=== PATIENT | male | born 1975 | race Hispanic/Latino ===

== ENCOUNTER → 2018-04-22 | Day surgery (SDC) | payer MEDICARE ==
[2018-04-15 13:42] LABS: BASOPHILS % 0.6 % (0.0-1.0); EOSINOPHILS # (AUTO) 0.1 (0.0-0.4); EOSINOPHILS % 1.3 % (0.0-6.0); HEMATOCRIT 58.2 % (38.2-49.6); HEMOGLOBIN 18.5 g/dL (14.0-18.0); LYMPHOCYTES # (AUTO) 2.1 (1.0-3.2); MEAN CORPUSCULAR HEMOGLOBIN 26.8 pg (28-32); MEAN CORPUSCULAR HGB CONC 31.8 g/dL (31-35); MEAN CORPUSCULAR VOLUME 84.2 fL (81-99); MONOCYTES # (AUTO) 0.7 (0.2-0.8); MONOCYTES % 10.9 % (4.4-11.3); NEUTROPHILS # (AUTO) 3.5 (2.1-6.9); NEUTROPHILS % 54.9 % (38.7-80.0); PLATELET COUNT 203 x10e3/uL (140-360); RED BLOOD COUNT 6.91 x10e6/uL (4.3-5.7); RED CELL DISTRIBUTION WIDTH 14.7 % (11.7-14.4)
[~2018-04-22] MED LIST: CARTIA XT180 MG PO; CARVEDILOL12.5 MG PO; DIGOXIN125 MCG PO; ELQUIS; ENTRESTO; FENOFIBRATE145 MG PO; FUROSEMIDE40 MG PO; MIDAZOLAM HCL 2 MG/2 ML VIAL ONE; PROPOFOL IV EMULSION 10 MG/ML 20 ML VIAL ONE
[2018-04-22 09:05] VITALS: BP 117/95
--- NOTE | 2018-04-22 16:31 | Operative Report ---
DATE OF PROCEDURE: 04/22/2018 SURGEON: Anselmo Meléndez MD PROCEDURE: Colonoscopy. INDICATION: Screening colonoscopy. DESCRIPTION OF PROCEDURE: After informed and written consent, premedications with monitored anesthesia care, standard video Olympus colonoscope was introduced into the rectum and all the way into the terminal ileum. Terminal ileum, cecum, and ascending, transverse, and descending colon all appeared to be normal. Mild diverticulosis was seen in the sigmoid colon. Retroflexion of the rectum was normal. IMPRESSION: Diverticulosis. Repeat colonoscopy in 10 years. Resume all medications. The patient to follow up with primary care physician, come back and see us as needed. Anselmo Meléndez MD SR/MODL /[id number]
--- OUTSIDE RECORDS SUMMARY | 2018-04-23 10:14 | XMS REPORT | Clinical Summary ---
Author Author [facility] Address Unknown Phone Unavailable Care Team Providers Care Financial Associate Name Role Phone Asked, No Pcp PCP Unavailable Allergies Not on File Medications End Date Status Medication Sig Dispensed Refills Start Date 12/25/2017 Discontinued metoprolol tartrate Take 50 mg by 0 (LOPRESSOR) 50 mg tablet mouth 2 (two) times a day. 12/25/2017 Discontinued lisinopril Take 10 mg by 0 (PRINIVIL,ZESTRIL) 10 mg mouth daily. tablet 01/24/2018 carvedilol (COREG) 6.25 Take 1 tablet 60 tablet 0 MG tablet (6.25 mg 8 total) by mouth 2 (two) times a day for 30 days. 01/24/2018 sacubitril-valsartan Take 1 tablet 60 tablet 0 (ENTRESTO) 49-51 mg by mouth 2 8 tablet per tablet (two) times a day for 30 days. 01/25/2018 apixaban (ELIQUIS) 5 mg Take 1 tablet 60 tablet 0 tablet (5 mg total) 8 by mouth 2 (two) times a day for 30 days. 01/25/2018 furosemide (LASIX) 40 mg Take 1 tablet 30 tablet 0 tablet (40 mg total) 8 by mouth daily for 30 days. 01/25/2018 aspirin (ECOTRIN) 81 MG Take 1 tablet 30 tablet 0 enteric coated tablet (81 mg total) 8 by mouth daily for 30 days. 03/06/2018 Discontinued apixaban (ELIQUIS) 5 mg Take 5 mg by 0 tablet mouth 2 (two) times a day. 03/06/2018 Discontinued sacubitril-valsartan Take 1 tablet 0 (ENTRESTO) 49-51 mg by mouth 2 tablet per tablet (two) times a day. 03/06/2018 Discontinued furosemide (LASIX) 40 mg Take 40 mg by 0 tablet mouth 2 (two) times a day. 03/06/2018 Discontinued carvedilol (COREG) 12.5 Take 12.5 mg 0 MG tablet by mouth 2 (two) times a day with meals. 04/05/2018 carvedilol (COREG) 25 MG Take 1 tablet 60 tablet 0 tablet (25 mg total) 9 by mouth 2 (two) times a day with meals for 30 days. 04/05/2018 sacubitril-valsartan Take 1 tablet 60 tablet 0 (ENTRESTO) 49-51 mg by mouth 2 9 tablet per tablet (two) times a day for 30 days. 04/06/2018 digOXIN (LANOXIN) 125 mcg Take 1 tablet 30 tablet 0 tablet (125 mcg 9 total) by mouth daily for 30 days. 04/05/2018 diltiazem CD (CardIZEM Take 1 30 capsule 0 CD) 360 MG 24 hr capsule capsule (360 9 mg total) by mouth daily for 30 days. 04/05/2018 apixaban (ELIQUIS) 5 mg Take 1 tablet 60 tablet 0 tablet (5 mg total) 9 by mouth 2 (two) times a day for 30 days. 04/05/2018 furosemide (LASIX) 40 mg Take 1 tablet 60 tablet 0 tablet (40 mg total) 9 by mouth 2 (two) times a day for 30 days. Active Problems Problem Noted Date Atrial fibrillation with RVR 03/02/2018 Pneumonia due to infectious organism 12/20/2017 Acute coronary syndrome 12/19/2017 Encounters Care Team Description Date Type Specialty Lisa Loomis MD Raza, Turab, MD Atrial fibrillation with RVR (HCC) (Primary Dx); SOB (shortness of breath) 03/02/2018 Hospital Cardiology - Encounter 03/06/2018 Jasmyn Trivedi, PharmD 12/26/2017 Patient Quality Outreach Zhao Luciano MD Cv right and left heart cath selective angiography lv [[id number] (CPT)] 12/24/2017 Surgery Procedural Cardiology SanchezGilberto DO Cherian, Cecil, MD Acute coronary syndrome (HCC) (Primary Dx); Pleural effusion; Atrial fibrillation, unspecified type (HCC) 12/19/2017 [facility] General Internal Medicine - Encounter 12/25/2017 after 04/22/2017 Social History Date Tobacco Use Types Packs/Day Years Used Never Smoker Smokeless Tobacco: Never Used Alcohol Use Drinks/Week oz/Week Comments Yes Sex Assigned at Date Recorded Not on file Industry Job Start Date Occupation Not on file Not on file Not on file Travel End Travel History Travel Start No recent travel history available. Last Filed Vital Signs Time Taken Vital Sign Reading 03/06/2018 11:51 AM [facility] Blood Pressure 120/69 03/06/2018 11:51 AM [facility] Pulse 56 03/06/2018 11:51 AM [facility] Temperature 36.7 C (98 F) 03/06/2018 11:51 AM [facility] Respiratory Rate 18 03/06/2018 11:51 AM [facility] Oxygen Saturation 95% - Inhaled Oxygen - Concentration 03/06/2018 5:01 AM [facility] Weight 114 kg (251 lb 9.6 oz) 12/19/2017 2:49 PM CDT Height 182.9 cm (6') 03/06/2018 5:01 AM [facility] Body Mass Index 34.12 Plan of Treatment Health Maintenance Due Date Last Done Comments INFLUENZA VACCINE 09/25/2017 Implants Device Identifier Shelf Expiration Date Model / Serial / Lot Implanted Type Area Manufactur er Yury Knee Procedures Comments Procedure Name Priority Date/Time Associated Diagnosis HC COMPLETE BLD COUNT Timed 03/06/2018 W/AUTO DIFF 6:00 AM [facility] TOTAL BILIRUBIN Routine 03/06/2018 4:00 AM [facility] ESTIMATED GFR Timed 03/05/2018 6:00 AM [facility] BASIC METABOLIC PANEL Timed 03/05/2018 6:00 AM [facility] ESTIMATED GFR Routine 03/05/2018 1:45 AM [facility] HC COMPLETE BLD COUNT Routine 03/05/2018 W/AUTO DIFF 1:45 AM [facility] BASIC METABOLIC PANEL Routine 03/05/2018 1:45 AM [facility] PHOSPHORUS LEVEL Routine 03/05/2018 1:45 AM [facility] MAGNESIUM LEVEL Routine 03/05/2018 1:45 AM [facility] HC COMPLETE BLD COUNT Timed 03/04/2018 W/AUTO DIFF 2:34 PM [facility] ESTIMATED GFR Timed 03/04/2018 6:00 AM [facility] BASIC METABOLIC PANEL Timed 03/04/2018 6:00 AM [facility] B NATRIURETIC PEPTIDE Routine 03/04/2018 5:20 AM [facility] PHOSPHORUS LEVEL Routine 03/04/2018 4:00 AM [facility] MAGNESIUM LEVEL Routine 03/04/2018 4:00 AM [facility] PERIPHERAL SMEAR Routine 03/03/2018 3:21 PM [facility] TOTAL BILIRUBIN Routine 03/03/2018 3:21 PM [facility] HAPTOGLOBIN Routine 03/03/2018 3:21 PM [facility] LDH Routine 03/03/2018 3:21 PM [facility] ESTIMATED GFR Routine 03/03/2018 6:30 AM [facility] BASIC METABOLIC PANEL Routine 03/03/2018 6:30 AM [facility] LACTIC ACID LEVEL Routine 03/03/2018 6:30 AM [facility] CBC HEMOGRAM Routine 03/03/2018 6:10 AM [facility] LACTIC ACID LEVEL, SEPSIS Timed 03/03/2018 - NOW AND REPEAT 2X EVERY 1:17 AM [facility] 3 HOURS XR CHEST 1 VW PORTABLE STAT 03/02/2018 7:40 PM [facility] RESPIRATORY PATHOGEN Routine 03/02/2018 PANEL 7:37 PM [facility] VENOUS BLOOD GAS STAT 03/02/2018 7:22 PM [facility] B NATRIURETIC PEPTIDE STAT 03/02/2018 7:22 PM [facility] PARTIAL THROMBOPLASTIN STAT 03/02/2018 TIME (PTT) 7:22 PM [facility] PROTHROMBIN TIME WITH INR STAT 03/02/2018 7:22 PM [facility] HC COMPLETE BLD COUNT STAT 03/02/2018 W/AUTO DIFF 7:22 PM [facility] ESTIMATED GFR STAT 03/02/2018 7:17 PM [facility] TROPONIN STAT 03/02/2018 7:17 PM [facility] LACTIC ACID LEVEL, SEPSIS STAT 03/02/2018 - NOW AND REPEAT 2X EVERY 7:17 PM [facility] 3 HOURS MAGNESIUM LEVEL STAT 03/02/2018 7:17 PM [facility] PHOSPHORUS LEVEL STAT 03/02/2018 7:17 PM [facility] HEPATIC FUNCTION PANEL STAT 03/02/2018 7:17 PM [facility] BASIC METABOLIC PANEL STAT 03/02/2018 7:17 PM [facility] NV CRITICAL CARE, E/M Routine 03/02/2018 30-74 MINUTES 7:01 PM [facility] ECG 12-LEAD STAT 03/02/2018 6:54 PM [facility] ESTIMATED GFR Routine 12/25/2017 4:35 AM CDT COMPREHENSIVE METABOLIC Routine 12/25/2017 PANEL 4:35 AM CDT HC COMPLETE BLD COUNT Routine 12/25/2017 W/AUTO DIFF 4:35 AM CDT CV RIGHT AND LEFT HEART Routine 12/24/2017 CATH SELECTIVE CORONARY 3:28 PM CDT LV URINALYSIS SCREEN AND Routine 12/24/2017 MICROSCOPY, WITH REFLEX 1:03 PM CDT TO CULTURE URINE CULTURE Routine 12/24/2017 1:00 PM CDT BLOOD CULTURE, AEROBIC & Routine 12/24/2017 ANAEROBIC 12:43 PM CDT BLOOD CULTURE, AEROBIC & Routine 12/24/2017 ANAEROBIC 12:36 PM CDT RESPIRATORY PATHOGEN Routine 12/24/2017 PANEL 11:36 AM CDT ESTIMATED GFR Routine 12/24/2017 4:10 AM CDT COMPREHENSIVE METABOLIC Routine 12/24/2017 PANEL 4:10 AM CDT HC COMPLETE BLD COUNT Routine 12/24/2017 W/AUTO DIFF 4:10 AM CDT HC COMPLETE BLD COUNT Routine 12/23/2017 W/AUTO DIFF 5:25 AM CDT ESTIMATED GFR Routine 12/23/2017 4:00 AM CDT COMPREHENSIVE METABOLIC Routine 12/23/2017 PANEL 4:00 AM CDT B NATRIURETIC PEPTIDE Routine 12/22/2017 5:01 AM CDT HC COMPLETE BLD COUNT Routine 12/22/2017 W/AUTO DIFF 5:01 AM CDT ESTIMATED GFR Routine 12/22/2017 4:00 AM CDT COMPREHENSIVE METABOLIC Routine 12/22/2017 PANEL 4:00 AM CDT HC COMPLETE BLD COUNT Routine 12/21/2017 W/AUTO DIFF 5:30 AM CDT ESTIMATED GFR Routine 12/21/2017 4:00 AM CDT COMPREHENSIVE METABOLIC Routine 12/21/2017 PANEL 4:00 AM CDT B NATRIURETIC PEPTIDE Routine 12/20/2017 4:45 AM CDT RESPIRATORY PATHOGEN Routine 12/19/2017 PANEL 11:49 PM CDT INFLUENZA ANTIGEN Routine 12/19/2017 11:49 PM CDT TROPONIN Timed 12/19/2017 10:31 PM CDT BLOOD CULTURE, AEROBIC & Routine 12/19/2017 ANAEROBIC 10:20 PM CDT BLOOD CULTURE, AEROBIC & Routine 12/19/2017 ANAEROBIC 10:20 PM CDT URINALYSIS SCREEN AND Routine 12/19/2017 MICROSCOPY, WITH REFLEX 7:22 PM CDT TO CULTURE URINE CULTURE Routine 12/19/2017 7:22 PM CDT ECHOCARDIOGRAM 2D STAT 12/19/2017 COMPLETE W MMODE SPECTRAL 6:51 PM CDT COLOR DOPPLER ([id number]) CT ANGIOGRAM PE CHEST STAT 12/19/2017 6:[address] HEAD WO CONTRAST STAT 12/19/2017 6:24 PM CDT TROPONIN Timed 12/19/2017 6:00 PM CDT XR CHEST 2 VW STAT 12/19/2017 4:34 PM CDT ESTIMATED GFR STAT 12/19/2017 3:19 PM CDT B NATRIURETIC PEPTIDE STAT 12/19/2017 3:19 PM CDT TROPONIN STAT 12/19/2017 3:19 PM CDT COMPREHENSIVE METABOLIC STAT 12/19/2017 PANEL 3:19 PM CDT HC COMPLETE BLD COUNT STAT 12/19/2017 W/AUTO DIFF 3:19 PM CDT ECG 12-LEAD STAT 12/19/2017 2:56 PM CDT after 04/22/2017 Results * CBC with platelet and differential (03/06/2018 6:00 AM [facility]) Only the most recent of 10 results within the time period is included. WBC 7.15 4.50 - 11.00 k/uL [facility] RBC 7.02 (H) 4.40 - 6.00 m/uL [facility] HGB 19.1 (H) 14.0 - 18.0 g/dL [facility] HCT 58.3 (H) 41.0 - 51.0 % [facility] MCV 83.0 82.0 - 100.0 fL [facility] MCH 27.2 27.0 - 34.0 pg [facility] MCHC 32.8 31.0 - 37.0 g/dL [facility] RDW - SD 43.9 37.0 - 55.0 fL [facility] MPV 9.6 8.8 - 13.2 fL [facility] Platelet count 261 150 - 400 k/uL [facility] Nucleated RBC 0.00 /100 WBC [facility] Neutrophils 52.2 39.0 - 69.0 % [facility] Lymphocytes 35.4 25.0 - 45.0 % [facility] Monocytes 10.1 (H) 0.0 - 10.0 % [facility] Eosinophils 1.4 0.0 - 5.0 % [facility] Basophils 0.6 0.0 - 1.0 % [facility] Immature granulocytes 0.3Comment: "Immature 0.0 - 1.0 % [facility] granulocytes" (promyelocytes, HOSPITAL myelocytes, metamyelocytes) Specimen Blood Performing Organization Address City/[facility] Phone Number [facility] DEPARTMENT OF [address] [place] [address] PATHOLOGY AND GENOMIC MEDICINE [address] * Total bilirubin (03/06/2018 4:00 AM [facility]) Only the most recent of 2 results within the time period is included. Total bilirubin 1.2 0.0 - 1.2 mg/dL [facility] Specimen Plasma specimen Performing Organization Address City/[facility] Phone Number [facility] DEPARTMENT OF [address] [place] [address] PATHOLOGY AND GENOMIC MEDICINE [address] * Estimated GFR (03/05/2018 6:00 AM [facility]) Only the most recent of 11 results within the time period is included. Estimated GFR >=90 mL/min/1.73 m2 [facility] Comment: HOSPITAL CatergoryUnitsInte rpretation G1 >=90 Normal or high G2 60-89Mildly decreased [id number] Mildly to moderately decreased [id number] Moderately to severely decreased G4 15-29Severely decreased G5 <15Kidney failure The eGFR was calculated using the Chronic Kidney Disease Epidemiology Collaboration (CKD-EPI) equation. Interpretation is based on recommendations of the National Kidney Foundation-Kidney Disease Outcomes Quality Initiative (NKF-KDOQI) published in 2014. Specimen Plasma specimen Performing Organization Address City/[facility] Phone Number [facility] [place] [place] [address] PATH[facility] [address] * Basic metabolic panel (03/05/2018 6:00 AM [facility]) Only the most recent of 5 results within the time period is included. Sodium 132 (L) 135 - 148 mEq/L [facility] Potassium 4.2 3.5 - 5.0 mEq/L [facility] Chloride 99 98 - 112 mEq/L [facility] CO2 23 (L) 24 - 31 mEq/L [facility] Anion gap 10@ANIO 7 - 15 mEq/L [facility] BUN 22 (H) 6 - 20 mg/dL [facility] Creatinine 0.98 0.70 - 1.20 mg/dL [facility] Glucose 90 65 - 99 mg/dL [facility] Calcium 8.9 8.3 - 10.2 mg/dL [facility] Specimen Plasma specimen Performing Organization Address [facility] Phone Number [facility] [place] [place] [address] PATHOLOGY [facility] [address] * Phosphorus level (03/05/2018 1:45 AM [facility]) Only the most recent of 3 results within the time period is included. Phosphorus 5.2 (H) 2.4 - 4.5 mg/dL [facility] Specimen Plasma specimen Performing Organization Address City/[facility] Phone Number [facility] [place] [place] [address] PATHOLOG[facility] [address] * Magnesium level (03/05/2018 1:45 AM [facility]) Only the most recent of 3 results within the time period is included. Magnesium 2.2 1.6 - 2.6 mg/dL [facility] Specimen Plasma specimen Performing Organization Address City/[facility]/Zipcode Phone Number [facility] [place] [place] [address] PATHOLOGY AND GENOMIC MEDICINE [address] * B natriuretic peptide (03/04/2018 5:20 AM [facility]) Only the most recent of 5 results within the time period is included. BNP 948 (H) 0 - 100 pg/mL [facility] Specimen Blood Performing Organization Address City/[facility] Phone Number [facility] [place] [place] [address] PATHOLOGY AND GENOMIC MEDICINE [address] * Peripheral smear (03/03/2018 3:21 PM [facility]) Peripheral smear Done [facility] Comment: HOSPITAL Peripheral smear is located in Hematology Laboratory, second floor of [facility]. Specimen Blood Performing Organization Address City/[facility] Phone Number [facility] [place] [place] [address] PATHOLOGY AND GENOMIC MEDICINE [address] * LDH (03/03/2018 3:21 PM [facility]) LDH 194 87 - 225 U/L [facility] Specimen Plasma specimen Narrative Performed At [facility] DEPARTMENT OF PATHOLOGY AND GENOMIC MEDICINE Performing Organization Address City/[facility] Phone Number [facility] [place] [place] [address] PATHOLOGY AND GENOMIC MEDICINE [address] * Haptoglobin (03/03/2018 3:21 PM [facility]) Haptoglobin 90 30 - 200 mg/dL [facility] Specimen Plasma specimen Narrative Performed At [facility] DEPARTMENT OF PATHOLOGY AND GENOMIC MEDICINE Performing Organization Address City/[facility]/Zipcode Phone Number [facility] [place] [place] [address] PATHOLOGY AND GENOMIC MEDICINE [address] * Lactic acid level (03/03/2018 6:30 AM [facility]) Lactic acid 2.8 (H) 0.5 - 2.2 mmol/L [facility] Specimen Blood Performing Organization Address City/State/Zipcode Phone Number [facility] DEPARTMENT [address] [address] PATHOLOGY AND GENOMIC MEDICINE [address] * CBC hemogram (03/03/2018 6:10 AM [facility]) WBC 7.35 4.50 - 11.00 k/uL [facility] RBC 6.13 (H) 4.40 - 6.00 m/uL [facility] HGB 16.8 14.0 - 18.0 g/dL [facility] HCT 51.5 (H) 41.0 - 51.0 % [facility] MCV 84.0 82.0 - 100.0 fL [facility] MCH 27.4 27.0 - 34.0 pg [facility] MCHC 32.6 31.0 - 37.0 g/dL [facility] RDW - SD 43.7 37.0 - 55.0 fL [facility] MPV 10.4 8.8 - 13.2 fL [facility] Platelet count 224 150 - 400 k/uL [facility] Nucleated RBC 0.00 /100 WBC [facility] Performing Organization Address [facility] [place] [address] PATHOLOGY AND GENOMIC MEDICINE [address] * Lactic acid level, SEPSIS - Now and repeat 2x every 3 hours (03/03/2018 1:17 AM [facility]) Only the most recent of 2 results within the time period is included. Lactic acid 2.7 (H) 0.5 - 2.2 mmol/L [facility] Specimen Blood Performing Organization Address City/[facility] Phone Number [facility] [place] [place] [address] PATHOLOGY AND GENOMIC MEDICINE [address] * XR Chest 1 Vw Portable (03/02/2018 7:40 PM [facility]) Narrative Performed At EXAMINATION:XR CHEST 1 VW PORTABLE [facility] CLINICAL HISTORY:Shortness of breath COMPARISON:12/19/2017 IMPRESSION: Cardiomediastinal silhouette and pulmonary vasculature are within normal limits. Lungs are clear. No pleural effusion or pneumothorax. Bones are unremarkable. [facility]-[id number] Procedure Note Hm Interface, Radiology Results Incoming - 03/02/2018 7:46 PM [facility] EXAMINATION: XR CHEST 1 VW PORTABLE CLINICAL HISTORY: Shortness of breath COMPARISON: 12/19/2017 IMPRESSION: Cardiomediastinal silhouette and pulmonary vasculature are within normal limits. Lungs are clear. No pleural effusion or pneumothorax. Bones are unremarkable. [facility]-[id number] Performing Organization Address [facility]/Zipcode Phone Number [facility] [address] [place] [address] * Respiratory pathogen panel (03/02/2018 7:37 PM [facility]) Only the most recent of 3 results within the time period is included. Respiratory pathogen Negative for all pathogens [facility] panel tested: HOSPITAL Negative for Adenovirus Negative for Coronavirus HKU1 Negative for Coronavirus NL63 Negative for Coronavirus 229E Negative for Coronavirus OC43 Negative for Human Metapneumovirus Negative for Rhinovirus/Enterovirus Negative for Influenza A Negative for Influenza A/H1 Negative for Influenza A/H3 Negative for Influenza A/H1-2009 Negative for Influenza B Negative for Parainfluenza Virus 1 Negative for Parainfluenza Virus 2 Negative for Parainfluenza Virus 3 Negative for Parainfluenza Virus 4 Negative for Respiratory Syncytial Virus Negative for Bordetella pertussis Negative for Chlamydophila pneumoniae Negative for Mycoplasma pneumoniae This real-time PCR assay detects the presence of nucleic acids (RNA or DNA) for the respiratory pathogens listed. A result of "Not-detected" does not exclude the possibility of the presence of one or more pathogens at concentrations less than the detectable limits of the assay. Comment: Specimen Information Specimen Source: Nares Specimen Site: Right Specimen Nares - Right Performing Organization Address [facility] Phone Number [facility] DEPARTMENT OF [address] [place] [id number] PATHOLOGY [place] [address] HOSPITAL * Partial thromboplastin time, activated (03/02/2018 7:22 PM [facility]) PTT 31.1 23.0 - 36.0 sec [facility] Comment: [facility] PTT therapeutic range for unfractionated heparin is 61.0-112.0 seconds which corresponds to Anti-Xa 0.3-0.7 U/ml. Specimen Blood Performing Organization Address [facility] Phone Number [facility] DEPARTMENT OF [address] [place] [address] PATHOLOGY AND GENOMIC MEDICINE [address] * Prothrombin time with INR (03/02/2018 7:22 PM [facility]) Prothrombin time 17.6 (H) 11.5 - 14.5 sec [facility] INR 1.5 [facility] Comment: HOSPITAL The International Normalized Ratio (INR) is a therapeutic monitoring tool for patients who are stable on oral anticoagulant therapy. An INR of 2.0-3.0 is suggested for deep vein thrombosis/pulmonary embolism. Specimen Blood Performing Organization Address City/State/Zipcode Phone Number [facility] [place] [address] PATHOLOGY AND GENOMIC MEDICINE [address] * Venous blood gas (03/02/2018 7:22 PM [facility]) pH, venous 7.41 7.32 - 7.42 [facility] pCO2, venous 29 (L) 45 - 51 mmHg [facility] pO2, venous 38 25 - 40 mmHg [facility] Base excess, venous -5 (L) -2 - 2 meq/L [facility] O2 saturation, venous 66 40 - 70 % [facility] Bicarbonate, venous 17.8 (L) 21.0 - 28.0 mmol/L [facility] Specimen Blood Performing Organization Address [facility] Phone Number [facility] [place] [place] [address] PATHOLOGY [facility] MEDICINE [address] * Troponin (03/02/2018 7:17 PM [facility]) Only the most recent of 4 results within the time period is included. Troponin <0.30 0.00 - 0.30 ng/mL [facility] Comment: HOSPITAL 0.30 - 1.49 ng/mlMay indicate increased risk of acute coronary syndrome. >=1.5 ng/ml Consistent with acute myocardial infarction. The diagnostic value of a single normal or non-diagnostic result is questionable.Serial samples at 2-6 hour intervals are required to rule out acute myocardial injury. Specimen Plasma specimen Performing Organization Address City/[facility]/Zipcode Phone Number [facility] [place] [place] [address] PATHOLOGY AND GENOMIC MEDICINE [address] * Hepatic function panel (03/02/2018 7:17 PM [facility]) Albumin 2.9 (L) 3.5 - 5.0 g/dL [facility] Total bilirubin 2.5 (H) 0.0 - 1.2 mg/dL [facility] Bilirubin direct 0.5 (H) 0.0 - 0.3 mg/dL [facility] Alkaline phosphatase 58 40 - 129 U/L [facility] Protein 6.2 (L) 6.3 - 8.3 g/dL [facility] Comment: HOSPITAL [place] 4.6-7.0 g/dL 1 week 4.4-7.6 g/dL 7 months-1year 5.1-7.3 g/dL 1-2 years5.6-7 .5 g/dL >3 years6.0-8 .0 g/dL 18-150 6.3-8.3 g/dL ALT 25 5 - 50 U/L [facility] AST 20 10 - 50 U/L [facility] Specimen Plasma specimen Performing Organization Address City/State/Zipcode Phone Number [facility] DEPARTMENT OF [address] [place] [address] PATHOLOGY AND GENOMIC MEDICINE [address] * CRITICAL CARE (03/02/2018 7:01 PM CLOTH SHRINKER) Narrative Performed At Lisa Loomis MD 03/05/2018 11:28 AM Critical Care Performed by: Lisa Loomis MD Authorized by: Lisa Loomis MD Critical care provider statement: Critical care time (minutes):35 Critical care time was exclusive of:Separately billable procedures and treating other patients and teaching time (afib with rvr, hypotension and possible cardiac compromise) Critical care was necessary to treat or prevent imminent or life-threatening deterioration of the following conditions:Cardiac failure and circulatory failure Critical care was time spent personally by me on the following activities:Blood draw for specimens, development of treatment plan with patient or surrogate, discussions with consultants, discussions with primary provider, interpretation of cardiac output measurements, obtaining history from patient or surrogate, review of old charts, re-evaluation of patient's condition, pulse oximetry, ordering and review of radiographic studies and ordering and review of laboratory studies Radu 'yes' if you are taking over critical care for this patient from another provider.: no * ECG 12 lead (03/02/2018 6:54 PM CLOTH SHRINKER) Only the most recent of 2 results within the time period is included. Ventricular rate 148 [facility] Atrial rate 182 [facility] QRSD interval 94 [facility] QT interval 300 [facility] QTC interval 471 [facility] QRS axis 1 99 [facility] T wave axis 69 [facility] EKG impression Atrial fibrillation with rapid [facility] ventricular response-Rightward axis-Abnormal ECG-No previous ECGs available- Narrative Performed At Procedure Note Lisa Loomis MD - 03/02/2018 7:01 PM CLOTH SHRINKER INCOMPLETE NOTE. Complete following data & Refresh Note - ED DISPO missing - CLINICAL IMPRESSION missing Emergency Department Provider Note Location: [facility] MAIN ED Patient ID: Lisa Casas is a 42 y.o. male. Chief Complaint No chief complaint on file. History of Present Illness 42 y/o male with PMHx of Cad, HTN,Kavon, Cadiomegaly, and Cardiac Arrest presents to ED with c/o constant worsening SOB onset 2 days. Pt states 2 days ago he started to feel sick and started having associated N/V, cough, fatigue, mild palpitations and BLE weakness. Pt denies any known fever in past 2 days. Pt was seen at Main ED in Jan 2018 for similar symptoms as well has high blood pressure. Pt is currently on blood thinners. History provided by: Patient Shortness of Breath Severity: Severe Onset quality: Sudden Duration: 2 days Timing: Constant Progression: Worsening Chronicity: New Relieved by: Nothing Worsened by: Nothing Ineffective treatments: None tried Associated symptoms: cough and vomiting History Allergies No Known Allergies Past Medical History Past Medical History: Diagnosis Date Cardiac arrest (HCC) WITH HYPOXIC BRAIN INJURY Cardiomegaly Coronary artery disease Hypertension KAVON (obstructive sleep apnea) Past Surgical History Past Surgical History: Procedure Laterality Date CARDIAC CATHETERIZATION N/A 12/24/2017 Procedure: Cv right and left heart cath selective angiography lv; Surgeon: Zhao Luciano MD; [facility] Systems Designer Invasive Location; Service: Cardiovascular; Laterality: N/A; Past Family History No family history on file. Past Social History Social History Tobacco Use Smoking status: Never Smoker Smokeless tobacco: Never Used Substance and Sexual Activity Alcohol use: Yes Drug use: Defer Sexual activity: Defer Social History Narrative Not on file Medications ED Medications Not on File Review of Systems Review of Systems Constitutional: Positive for fatigue. HENT: Negative. Negative for tinnitus. Eyes: Negative. Negative for blurred vision and blurred vision. Respiratory: Positive for cough and shortness of breath. Cardiovascular: Positive for palpitations. Gastrointestinal: Positive for nausea and vomiting. Genitourinary: Negative. Musculoskeletal: Negative. Hematological: Negative. Neurological: Positive for weakness (BLE). Negative for seizures. All other systems reviewed and are negative. Physical Exam ED Triage Vitals Temp Pulse Resp BP SpO2 -- -- -- -- -- Temp src Heart Rate Source Patient Position BP Location FiO2 % -- -- -- -- -- Physical Exam Constitutional: He is oriented to person, place, and time. He appears well- developed and well-nourished. He has a sickly appearance. HENT: Head: Normocephalic and atraumatic. Nose: Nose normal. Eyes: Conjunctivae and EOM are normal. Pupils are equal, round, and reactive to light. Neck: Normal range of motion. Neck supple. Cardiovascular: Normal heart sounds. An irregularly irregular rhythm present. Tachycardia present. Pulmonary/Chest: Effort normal. He has rales in the right lower field and the left lower field. Abdominal: Soft. Bowel sounds are normal. Musculoskeletal: Normal range of motion. He exhibits edema (trace edema to BLE). Neurological: He is alert and oriented to person, place, and time. Skin: There is pallor. Psychiatric: He has a normal mood and affect. His behavior is normal. Nursing note and vitals reviewed. ED Course ED Course as of Mar 05 1119 Sun Mar 02, [id number] Dr. Luciano: will consult [JA] ED Course User Index [JA] Lisa Loomis MD Clinical Impressions as of Mar 05 1119 Atrial fibrillation with RVR (HCC) SOB (shortness of breath) MDM MDM Number of Diagnoses or Management Options Atrial fibrillation with RVR (HCC): new and requires workup SOB (shortness of breath): new and requires workup Amount and/or Complexity of Data Reviewed Tests in the medicine section of CPT: ordered and reviewed Decide to obtain previous medical records or to obtain history from someone other than the patient: yes Obtain history from someone other than the patient: yes Review and summarize past medical records: yes Discuss the patient with other providers: yes Independent visualization of images, tracings, or specimens: yes Risk of Complications, Morbidity, and/or Mortality Presenting problems: high Diagnostic procedures: high Management options: high Patient Progress Patient progress: stable Labs No results found for this visit on 03/02/18. Radiology No results found. Procedures ECG 12 lead Date/Time: 03/02/2018 7:02 PM Performed by: Lisa Loomis MD Authorized by: Lisa Loomis MD ECG reviewed by ED Physician in the absence of a student finance specialist: yes Previous ECG: Previous ECG: Unavailable Interpretation: Interpretation: abnormal Rate: ECG rate: 148 ECG rate assessment: tachycardic Rhythm: Rhythm: atrial fibrillation Ectopy: Ectopy: none QRS: QRS axis: Normal QRS intervals: Normal Conduction: Conduction: normal ST segments: ST segments: Normal T waves: T waves: normal Critical Care Performed by: Lisa Loomis MD Authorized by: Lisa Loomis MD Critical care provider statement: Critical care time (minutes): 35 Critical care time was exclusive of: Separately billable procedures and treating other patients and teaching time (afib with rvr, hypotension and possible cardiac compromise) Critical care was necessary to treat or prevent imminent or life-threatening deterioration of the following conditions: Cardiac failure and circulatory failure Critical care was time spent personally by me on the following activities: Blood draw for specimens, development of treatment plan with patient or surrogate, discussions with consultants, discussions with primary provider, interpretation of cardiac output measurements, obtaining history from patient or surrogate, review of old charts, re-evaluation of patient's condition, pulse oximetry, ordering and review of radiographic studies and ordering and review of laboratory studies Radu 'yes' if you are taking over critical care for this patient from another provider.: no Differential Diagnoses This patient has a differential diagnosis including but not limited to pulmonary edema A-fib with RVR, heart failure, PNA. Final Diagnoses Final diagnoses: None Disposition This patient has a disposition of Data Unavailable. ED Attestations Scribe Attestation: This document is recorded by Bhargav Miramontes acting as a scribe under the direction and presence of Lisa Loomis MD. Provider attestation of scribe: Lisa Loomis MD: I personally performed the services recorded by the scribe in my presence. I confirm the scribe's documentation has been reviewed by me to accurately record my work, treatment, procedures, and medical decision making. Bhargav Miramontes 03/02/18 1915 Lisa Loomis MD 03/05/18 1128 Performing Organization Address City/State/Zipcode Phone Number [facility] [address] [place] [address] * Comprehensive metabolic panel (12/25/2017 4:35 AM CDT) Only the most recent of 6 results within the time period is included. Sodium 136 135 - 148 mEq/L [facility] DEPARTMENT OF PATHOLOGY AND GENOMIC MEDICINE Potassium 4.4 3.5 - 5.0 mEq/L [facility] DEPARTMENT OF PATHOLOGY AND GENOMIC MEDICINE Chloride 101 98 - 112 mEq/L [facility] DEPARTMENT OF PATHOLOGY AND GENOMIC MEDICINE CO2 23 (L) 24 - 31 mEq/L [facility] DEPARTMENT OF PATHOLOGY AND GENOMIC MEDICINE Anion gap 12@ANIO 7 - 15 mEq/L [facility] DEPARTMENT OF PATHOLOGY AND GENOMIC MEDICINE BUN 15 6 - 20 mg/dL [facility] DEPARTMENT OF PATHOLOGY AND GENOMIC MEDICINE Creatinine 0.92 0.70 - 1.20 mg/dL [facility] DEPARTMENT OF PATHOLOGY AND GENOMIC MEDICINE Glucose 100 (H) 65 - 99 mg/dL [facility] DEPARTMENT OF PATHOLOGY AND GENOMIC MEDICINE Calcium 8.9 8.3 - 10.2 mg/dL [facility] DEPARTMENT OF PATHOLOGY AND GENOMIC MEDICINE Protein 7.0 6.3 - 8.3 g/dL [facility] DEPARTMENT OF Comment: PATHOLOGY AND [place] GENOMIC MEDICINE 4.6-7.0 g/dL 1 week 4.4-7.6 g/dL 7 months-1year 5.1-7.3 g/dL 1-2 years5.6-7 .5 g/dL >3 years6.0-8 .0 g/dL 18-150 6.3-8.3 g/dL Albumin 3.1 (L) 3.5 - 5.0 g/dL [facility] DEPARTMENT OF PATHOLOGY AND GENOMIC MEDICINE A/G ratio 0.8 0.7 - 3.8 [facility] DEPARTMENT OF PATHOLOGY AND GENOMIC MEDICINE Alkaline phosphatase 59 40 - 129 U/L [facility] DEPARTMENT OF PATHOLOGY AND GENOMIC MEDICINE AST 30 10 - 50 U/L [facility] DEPARTMENT OF PATHOLOGY AND GENOMIC MEDICINE ALT 32 5 - 50 U/L [facility] DEPARTMENT OF PATHOLOGY AND GENOMIC MEDICINE Total bilirubin 1.0 0.0 - 1.2 mg/dL [facility] DEPARTMENT OF PATHOLOGY AND GENOMIC MEDICINE Specimen Plasma specimen Performing Organization Address City/[facility] Phone Number [facility] DEPARTMENT OF [address] [place] [phone] PATHOLOGY AND GENOMIC MEDICINE * Cv petroleum refinery laborer procedure (12/24/2017 3:28 PM CDT) Cath EF Estimated 25 % [facility] Narrative Performed At [facility] Right heart filling pressure is normal. Pulmonary hypertension is absent. Cardiac output is normal. LHC: Normal coronary arteries. LVEDP 8 mmHg LVEF 25% with global hypokinesis RHC: RA 10/11, mean 8 mmHg RV 26/0, EDP 6 mmHg PA 27/13, mean 21 mmHg PCWP unable to be obtained Thermo CO 2.9 CI 1.3 Nito CO 4.2, CI 1.8 Performing Organization Address [facility] Phone Number [facility] [address] [place] [address] * Urinalysis screen and microscopy, with reflex to culture (12/24/2017 1:03 PM CDT) Only the most recent of 2 results within the time period is included. Specimen site Clean catch [facility] DEPARTMENT OF PATHOLOGY AND GENOMIC MEDICINE Color, UA Straw [facility] DEPARTMENT OF PATHOLOGY AND GENOMIC MEDICINE Appearance, UA Clear [facility] DEPARTMENT OF PATHOLOGY AND GENOMIC MEDICINE Specific gravity, UA 1.008 1.001 - 1.035 [facility] DEPARTMENT OF PATHOLOGY AND GENOMIC MEDICINE pH, UA 5.0 5.0 - 8.5 [facility] DEPARTMENT OF PATHOLOGY AND GENOMIC MEDICINE Protein, UA Negative Negative [facility] DEPARTMENT OF PATHOLOGY AND GENOMIC MEDICINE Glucose, UA Negative Negative [facility] DEPARTMENT OF PATHOLOGY AND GENOMIC MEDICINE Ketones, UA Negative Negative [facility] DEPARTMENT OF PATHOLOGY AND GENOMIC MEDICINE Bilirubin, UA Negative Negative [facility] DEPARTMENT OF PATHOLOGY AND GENOMIC MEDICINE Blood, UA Negative Negative [facility] DEPARTMENT OF PATHOLOGY AND GENOMIC MEDICINE Nitrite, UA Negative Negative [facility] DEPARTMENT OF PATHOLOGY AND GENOMIC MEDICINE Urobilinogen, UA <2.0 <2.0 [facility] DEPARTMENT OF PATHOLOGY AND GENOMIC MEDICINE Leukocyte esterase, UA Negative Negative [facility] DEPARTMENT OF PATHOLOGY AND GENOMIC MEDICINE WBC, UA <1 0 - 1 /HPF [facility] DEPARTMENT OF PATHOLOGY AND GENOMIC MEDICINE RBC, UA None seen 0 - 5 /HPF [facility] DEPARTMENT OF PATHOLOGY AND GENOMIC MEDICINE Bacteria, UA Few None seen [facility] DEPARTMENT OF PATHOLOGY AND GENOMIC MEDICINE Yeast, UA None seen [facility] DEPARTMENT OF PATHOLOGY AND GENOMIC MEDICINE Yeast with pseudohyphae, None seen [facility] DEPARTMENT OF UA PATHOLOGY AND GENOMIC MEDICINE Specimen Urine Performing Organization Address [facility] Phone Number [facility] DEPARTMENT OF [address] [place] [address] PATHOLOGY AND GENOMIC MEDICINE * Urine culture (12/24/2017 1:00 PM CDT) Only the most recent of 2 results within the time period is included. Urine culture SEE COMMENTComment: [facility] DEPARTMENT OF Bacteriuria screen negative. PATHOLOGY AND GENOMIC MEDICINE Performing Organization Address City/[facility] Phone Number [facility] DEPARTMENT OF [address] [place] [address] PATHOLOGY AND [facility] MEDICINE * Blood culture, aerobic & anaerobic (12/24/2017 12:43 PM CDT) Only the most recent of 4 results within the time period is included. Blood culture isolate No growth after 5 days of [facility] DEPARTMENT OF incubation. PATHOLOGY AND Comment: GENOMIC MEDICINE Specimen Information Specimen Source: Blood Specimen Site: Wrist, left Specimen Blood - Wrist, left Performing Organization Address City/[facility] Phone Number [facility] DEPARTMENT OF [address] [place] [address] PATHOLOGY AND GENOMIC MEDICINE * Influenza antigen (12/19/2017 11:49 PM CDT) Influenza antigen Negative for Influenza A/B [facility] DEPARTMENT OF antigen. PATHOLOGY AND Comment: GENOMIC MEDICINE Specimen Information Specimen Source: Nares Specimen Site: Left Specimen Nares - Left Performing Organization Address [facility] Phone Number [facility] DEPARTMENT OF [address] [place] [address] PATHOLOGY AND GENOMIC MEDICINE * Echocardiogram complete w contrast and 3D if needed (12/19/2017 6:51 PM CDT) Narrative Performed At [facility] Echocardiography Report [address] [place] [address] Pat.Name:LISA CASAS Pat.ID:[id number] .Date: 12/19/2017Refer.MD:MADELINE SANCHEZ MD Exam Time: 6:25:00 PMStudy Type:Routine Echo Height:70inWeight:200lb BSA: 2.09 m2 DOBAge:1975,41Y Sex: MALEBP:136/88 HR:114 bpm Sonogrphr: JESUS MANUEL Griffin Pat. Stat.:Inpatient Room:ED39 Study Status:Final Echo Event ID:[id number] Order ID:[id number] Reason for Study:Ventricular Function after ACS - Re-eval of ventricular frunction following ACS during recovery phase when results will guide therapy Procedures:2D Echo, Colorflow Doppler, Portable, Stat Race:C FINDINGS: LV: LV size is moderately enlarged. LV EF is severely depressed. EstimatedEF is <20%. Regional wall motion abnormalities present. RV: RV size is normal. RV systolic function is mild to moderatelydepressed. LA: LA volume is severely enlarged. RA: RA volume is mildly enlarged. AO: Aortic root diameter is normal. JOSEPH: No pericardial effusion. AV: No structural AV abnormalities noted. MV: Moderate mitral annular calcification. A trace of mitral regurgitation. PV: No structural PV abnormalities noted. Mild pulmonic regurgitation. TV: No structural TV abnormalities noted. Balder[place]: Diastolic dysfunction Grade III (Severe): Impaired relaxationwith restrictive LV filling pressures. Other:Insufficient TR jet to estimate PA systolic pressure. MEASUREMENTS: 2D Parasternal [place] LVOT 2.2 cmLA Ds5.8 cm LVIDd5.7 cmIndex2.7 cm/m Ao An2.3 cm LVIDs4.9 cmAo Rtd 3.4 cm Index1.6 cm/m LV%fs 14 % LV Wchq879.1 g(122-174) IVSd 1.1 cmLVM Xrpva332.4 g/m2 LVPWd0.9 cmRWT0.3 LA Sng Plane LA Area 31.6 cm2(8.8-23.4) LA Vol 121.6 ml Index58.2 ml/m LA LngAx 6.9 cm RA Sng Plane RA Area 21 cm2(8.3-19.5) RA Vol61.6 ml Index29.5 ml/m RA LngAx 6.1 cm DOPPLER LVOT Stroke Vol LVOT 2.2 cmLVOT CO3.7 l/min LVOT TVI 8.9 cmLVOT CI1.8 l/m/m2 LVOT Tm219 msecHR 110 bpm LVOT SV 33.7 ml WALL MOTION: RESTING WALL MOTION: Basal Anteroseptal, Mid Anterior, Mid Anteroseptal, Mid Inferoseptal, Mid Inferior, Apical Anterior, Apical Septal, Apical Inferior, Apical Lateral, Apical francisco are akinetic.Basal Anterior, Basal Inferoseptal, Basal Inferior, Basal Anterolateral, Mid Inferolateral, Mid Anterolateral francisco are hypokinetic. Normal in all other francisco. Wall Index=2.5 Signed 12/20/2017 01:58 PM Oscar Salinas M.D. Procedure Note Interface, Radiology Results In - 12/20/2017 1:58 PM CDT Echocardiography Report [address]Name: LISA CASAS.ID: [id number] .Date: 12/19/2017 Refer.MD: MADELINE SANCHEZ MD Exam Time: 6:25:00 PM Study Type:Routine Echo Height: 70in Weight: 200lb BSA: 2.09 m2 Age: 11 1975,41Y Sex: MALE BP: 136/88 HR: 114 bpm Sonogrphr: Elisa Lundberg, JESUS MANUEL Pat. Stat.:Inpatient Room: ED39 Study Status:Final Echo Event ID:[id number] Order ID: [id number] Reason for Study:Ventricular Function after ACS - Re-eval of ventricular frunction following ACS during recovery phase when results will guide therapy Procedures:2D Echo, Colorflow Doppler, Portable, Stat Race: C FINDINGS: LV: LV size is moderately enlarged. LV EF is severely depressed. Estimated EF is <20%. Regional wall motion abnormalities present. RV: RV size is normal. RV systolic function is mild to moderately depressed. LA: LA volume is severely enlarged. RA: RA volume is mildly enlarged. AO: Aortic root diameter is normal. JOSEPH: No pericardial effusion. AV: No structural AV abnormalities noted. MV: Moderate mitral annular calcification. A trace of mitral regurgitation. PV: No structural PV abnormalities noted. Mild pulmonic regurgitation. TV: No structural TV abnormalities noted. [place]der[place]: Diastolic dysfunction Grade III (Severe): Impaired relaxation with restrictive LV filling pressures. Other: Insufficient TR jet to estimate PA systolic pressure. MEASUREMENTS: 2D Parasternal [place] LVOT 2.2 cm LA Ds 5.8 cm LVIDd 5.7 cm Index 2.7 cm/m Ao An 2.3 cm LVIDs 4.9 cm Ao Rtd 3.4 cm Index 1.6 cm/m LV%fs 14 % LV Mass 216.1 g (122-174) IVSd 1.1 cm LVM Index 103.4 g/m2 LVPWd 0.9 cm RWT 0.3 LA Sng Plane LA Area 31.6 cm2 (8.8-23.4) LA Vol 121.6 ml Index 58.2 ml/m LA LngAx 6.9 cm RA Sng Plane RA Area 21 cm2 (8.3-19.5) RA Vol 61.6 ml Index 29.5 ml/m RA LngAx 6.1 cm DOPPLER LVOT Stroke Vol LVOT 2.2 cm LVOT CO 3.7 l/min LVOT TVI 8.9 cm LVOT CI 1.8 l/m/m2 LVOT Tm 219 msec HR 110 bpm LVOT SV 33.7 ml WALL MOTION: RESTING WALL MOTION: Basal Anteroseptal, Mid Anterior, Mid Anteroseptal, Mid Inferoseptal, Mid Inferior, Apical Anterior, Apical Septal, Apical Inferior, Apical Lateral, Apical francisco are akinetic. Basal Anterior, Basal Inferoseptal, Basal Inferior, Basal Anterolateral, Mid Inferolateral, Mid Anterolateral francisco are hypokinetic. Normal in all other francisco. Wall Index=2.5 Signed 12/20/2017 01:58 PM Oscar Salinas M.D. Performing Organization Address [facility]/State/Zipcode Phone Number [facility] [address] [place] [address] * CT Angiogram Pe Chest (12/19/2017 6:25 PM CDT) Narrative Performed At EXAMINATION: [facility] CT ANGIOGRAM PE CHEST CLINICAL HISTORY: rule out pe TECHNIQUE:CT angiographic images of the chest were obtained during intravenous administration of iodinated contrast. Computerized reformatted images and 3-D MIP images were also obtained and archived (CT pulmonary embolus protocol). CT scans are performed using radiation dose reduction techniques. Technical factors are evaluated and adjusted to ensure appropriate moderation of exposure. Automated dose management technology is applied to adjust radiation exposure while achieving a diagnostic quality image COMPARISON: None. FINDINGS: Some minimal groundglass infiltrates to the posterior costophrenic sulcus bilaterally where there are small posterior pleural effusions.Otherwise no evidence of parenchymal infiltrate. There is no mediastinal mass or definite hilar adenopathy. Thoracic aorta and pulmonary artery are of normal caliber. Scans to the upper abdomen are unremarkable. There is good opacification the pulmonary artery with no evidence of pulmonary embolus. IMPRESSION: No evidence of pulmonary embolus [facility]-[id number] Procedure Note Interface, Radiology Results Incoming - 12/19/2017 6:33 PM CDT EXAMINATION: CT ANGIOGRAM PE CHEST CLINICAL HISTORY: rule out pe TECHNIQUE: CT angiographic images of the chest were obtained during intravenous administration of iodinated contrast. Computerized reformatted images and 3-D MIP images were also obtained and archived (CT pulmonary embolus protocol). CT scans are performed using radiation dose reduction techniques. Technical factors are evaluated and adjusted to ensure appropriate moderation of exposure. Automated dose management technology is applied to adjust radiation exposure while achieving a diagnostic quality image COMPARISON: None. FINDINGS: Some minimal groundglass infiltrates to the posterior costophrenic sulcus bilaterally where there are small posterior pleural effusions. Otherwise no evidence of parenchymal infiltrate. There is no mediastinal mass or definite hilar adenopathy. Thoracic aorta and pulmonary artery are of normal caliber. Scans to the upper abdomen are unremarkable. There is good opacification the pulmonary artery with no evidence of pulmonary embolus. IMPRESSION: No evidence of pulmonary embolus [facility]-[id number] Performing Organization Address City/State/Zipcode Phone Number [facility] [address] [place] [address] * CT Head Wo Contrast (12/19/2017 6:24 PM CDT) Narrative Performed At EXAMINATION:CT HEAD WO CONTRAST [facility]IANT CLINICAL HISTORY:patient feels off balance COMPARISON:None. FINDINGS: There is generalized brain parenchymal involution atrophy which is advanced for the patient age with white matter nonspecific hypodensities. There is minimal nonspecific ventriculomegaly most likely related to central volume loss. There is no evidence of acute hemorrhage, mass lesion, or midline shift. The helm-white matter differentiation is preserved with no evidence of acute territorial infarction.There is no extra-axial fluid collection. Visualized paranasal sinuses and mastoid air cells are clear. Bones, orbits, and soft tissues are unremarkable All CT images were acquired using low-dose technique with automated exposure control. IMPRESSION: No acute intracranial hemorrhage or mass effect. Advanced for age generalized brain parenchymal involution atrophy. Clinical correlation is recommended. [id number] Procedure Note Interface, Radiology Results Incoming - 12/19/2017 6:37 PM CDT EXAMINATION: CT HEAD WO CONTRAST CLINICAL HISTORY: patient feels off balance COMPARISON: None. FINDINGS: There is generalized brain parenchymal involution atrophy which is advanced for the patient age with white matter nonspecific hypodensities. There is minimal nonspecific ventriculomegaly most likely related to central volume loss. There is no evidence of acute hemorrhage, mass lesion, or midline shift. The helm-white matter differentiation is preserved with no evidence of acute territorial infarction. There is no extra-axial fluid collection. Visualized paranasal sinuses and mastoid air cells are clear. Bones, orbits, and soft tissues are unremarkable All CT images were acquired using low-dose technique with automated exposure control. IMPRESSION: No acute intracranial hemorrhage or mass effect. Advanced for age generalized brain parenchymal involution atrophy. Clinical correlation is recommended. [id number] Performing Organization Address City/[facility] Phone Number [facility] [phone] [place] [address] * XR Chest 2 Vw (12/19/2017 4:34 PM CDT) Narrative Performed At EXAMINATION:XR CHEST 2 VW [facility]IANT CLINICAL HISTORY:Chest pain or SOBpleurisy or effusion suspected COMPARISON:None IMPRESSION: 1.There are small bilateral basal pleural effusions, and there may be some mild infiltrate posteriorly on the left. 2.The upper lungs are clear. 3.Heart size is within normal limits. [id number] Procedure Note Interface, Radiology Results Incoming - 12/19/2017 4:47 PM CDT EXAMINATION: XR CHEST 2 VW CLINICAL HISTORY: Chest pain or SOB pleurisy or effusion suspected COMPARISON: None IMPRESSION: 1. There are small bilateral basal pleural effusions, and there may be some mild infiltrate posteriorly on the left. 2. The upper lungs are clear. 3. Heart size is within normal limits. [id number] Performing Organization Address City/State/Zipcode Phone Number [facility] [address] [place] [address] after 04/22/2017 Insurance Payer Benefit Subscriber ID Type Phone Address Plan / Group [employer] MEDICARE HU[employer] HMO xxxxxxxxx HMO G[employer] MEDICARE Advance Directives Patient has advance care planning documents on file. For more information, genoveva e contact: Abbe Mojica [address] [place] [address]
--- OUTSIDE RECORDS SUMMARY | 2018-04-23 10:14 | XMS REPORT ---
Author Author [facility] Address Unknown Phone Unavailable Care Team Providers Care Advertising Associate Name Role Phone Unavailable Unavailable Payers Payer Name Policy Type Policy Number Effective Date Expiration Date Problems This patient has no known problems. Allergies, Adverse Reactions, Alerts Allergy Name Allergy Type Status Severity Reaction(s) Onset Date Inactive Date Treating Clinician Comments No Known Allergies DA Active U 2012-02-17 00:00:00 Medications This patient has no known medications.
== END | disposition home or self-care (01) ==
LOC: OR 07:52
PROVIDERS: ATTEND Internal Medicine Gastroenterology
DX: Z12.11 Encounter for screening for malignant neoplasm of colon (principal); K57.30 Diverticulosis of large intestine without perforation or abscess without bleeding; I48.91 Unspecified atrial fibrillation; I49.3 Ventricular premature depolarization; I10 Essential (primary) hypertension; Z86.010 Personal history of colon polyps; G47.30 Sleep apnea, unspecified; Z80.0 Family history of malignant neoplasm of digestive organs; Z87.891 Personal history of nicotine dependence; E66.9 Obesity, unspecified; Z68.36 Body mass index [BMI] 36.0-36.9, adult; Z79.01 Long term (current) use of anticoagulants
CPT/HCPCS: 36415; 85025; 93005; G0105; J2250; J2704; 45378